=== PATIENT | female | born 1945 | race Caucasian/White ===

== ENCOUNTER 2017-07-22 13:54 | Inpatient (IN) | payer OTHER, BC ==
[~2017-07-22] VITALS: Ht 160 cm; Wt 62.1 kg
[2017-07-22] VITALS (27 sets, daily range): BP systolic 93–180; BP diastolic 34–76
--- NOTE | ~2017-07-22 | P ---
[facility] [place] [address] PROCEDURE REPORT Name: VENESSA CH Room #: 244-P ADM IN .R.#: [id number] Admission: 07/22/17 Attend Phys: Rm Kim MD Discharge: Date of : 47 Report #: [id number] THIS REPORT FOR: //name// CC: RM Draper DATE OF SERVICE: 07/23/2017 PROCEDURE PERFORMED: Upper endoscopy. HISTORY OF PRESENT ILLNESS: The patient is a 71-year-old female with a history of end-stage liver disease, end-stage renal disease, on hemodialysis, she was admitted with acute mental status change from her nursing facility and she was recently discharged from [facility]. On admission was noted to be severe anemic with a hemoglobin of 5.7. She has now received a total of 2 units and now in the [address] scan of her head showed no acute processes. The patient apparently has a history of chronic hepatitis C and cirrhosis, apparently is not a possible liver transplant candidate due to multiple comorbidities. On admission to the Emergency Room, she was noted to have some small amount of bright red blood in her mouth, there was no recent history of melanotic stools or bright red blood per rectum. Plan is for EGD. DESCRIPTION OF PROCEDURE: The risks and benefits of the procedure were explained to the patient's son, those risks including but not limited to bleeding, perforation, the risk of sedation. He understood these risks and gave informed consent. Sedation was given using propofol per anesthesia. The procedure was performed in the ICU, the patient is intubated at this time. Next, using a therapeutic Fujinon upper endoscope, the scope was placed in the patient's mouth and advanced under direct vision through the esophagus, stomach and into the second portion of the duodenum. The esophagus was normal throughout. The GE junction was normal. No evidence of esophageal varices. In the stomach, in the gastric fundus, there was some old blood, that was pooled in this area. Multiple washings and aspirations were performed not all of that could be removed, but no obvious gastric varices were noted. There was a mild diffuse gastritis. In the antrum, there was a small amount of bright red blood. Multiple washings and aspirations were performed, no active bleeding. No obvious ulcerations or erosions. Of note, the patient has platelet count 38,000, an elevated INR of 1.5 due to her liver disease. Her pylorus was normal and patent. Her duodenal bulb, first and second portion were normal. The scope was then withdrawn and the procedure terminated. The patient tolerated the procedure well. IMPRESSION: 1. Mild diffuse gastritis in the gastric body and antrum with small amount of bright red blood, nothing to cauterize. No ulcerations or erosions. She may [address] [address] PROCEDURE REPORT Name: VENESSA CH Room #: 244-P [facility] IN M.R.#: [id number] Admission: 07/22/17 Attend Phys: Rm Kim MD Discharge: Date of : 47 Report #: [id number] have bleeding secondary to low platelets and elevated INR as well as gastritis, would continue PPI therapy. We will discontinue octreotide at this time and continue to monitor hemoglobin closely. If she has continued drop in her hemoglobin, may need to consider colonoscopy or further evaluation. 2. Elevated ammonia level. She is currently undergoing lactulose enemas at this time. We will continue to monitor ammonia levels. Thank you for allowing me to participate in her care. <ELECTRONICALLY SIGNED> By: Shayne Duncan MD 07/24/17 1234 [id number] 0108 Shayne Duncan MD /nt
--- NOTE | ~2017-07-22 | HC ---
[facility] [place] [address] CONSULTATION Name: VENESSA CH Room #: 420-P [facility] IN M.R.#: [id number] Admission: 07/22/17 Attend Phys: Rm Kim MD Discharge: Date of : 47 Report #: [id number] THIS REPORT FOR: //name// CC: Rm Draper INFECTIOUS DISEASE CONSULTATION REASON FOR CONSULTATION: I was asked to evaluate concerning multisystem failure with underlying cirrhosis and hepatic encephalopathy with GI bleed, respiratory failure, end-stage renal disease. HISTORY OF PRESENT ILLNESS: Recently hospitalized at [facility] with hepatic encephalopathy. She has underlying hepatitis C and end-stage renal disease, undergoing hemodialysis via right upper extremity AV fistula. Following her discharge, she was at [facility] where she became more lethargic. Brought in through the Emergency Room with evidence of bleeding from her mouth. Hemoglobin 5 and encephalopathic. She does have a history of variceal bleeding. She has been placed on octreotide drip. Intubated and remains on the ventilator. She remains encephalopathic. She was treated with ceftriaxone. She has remained afebrile and hemodynamically stable off vasopressors. She has had black tarry stools. FiO2 is 30%. She has a right IJ catheter, which is oozing. She is now on hemodialysis. ALLERGIES: None known. MEDICATIONS: As noted on her MAR, now on ceftriaxone. PAST MEDICAL HISTORY: Very limited from the records noting hepatitis C with cirrhosis, varices, previous hepatic encephalopathy, end-stage renal disease. FAMILY HISTORY: Not available. SOCIAL HISTORY: Not available and awaiting records for further evaluation. REVIEW OF SYSTEMS: As noted above. PHYSICAL EXAMINATION: VITAL SIGNS: Afebrile, vital signs were stable with a pulse of 89, blood pressure 118/40, MAP of 63, FiO2 of 30%. HEENT: Pupils were reactive to light. She was otherwise unresponsiveness to painful stimulus. SKIN: Unremarkable, had some oozing from her mouth, orally intubated, right IJ catheter with some oozing. EXTREMITIES: Right upper extremity AV fistula functioning. LUNGS: Coarse bilaterally. HEART: Regular without murmur. [facility] [address] [place] [address] CONSULTATION Name: VENESSA CH Room #: 420-P [facility] IN M.R.#: [id number] Admission: 07/22/17 Attend Phys: Rm Kim MD Discharge: Date of : 47 Report #: [id number] ABDOMEN: Soft. She did have some edema to abdominal pannus. No masses appreciated. No hepatosplenomegaly. GENITOURINARY: Rectal tube in place with black stool, small eschar to the right heel. LABORATORY STUDIES: Sodium 129, potassium 4.7, bicarb at 20, creatinine 4.5. AST 67, bilirubin 2.2, alk phos 115, ALT 37, albumin at 2.1. Ammonia initially 224, now 161. Troponin negative. Alcohol negative. INR 1.5. Hemoglobin 7.5 up from 5.2 last evening. WBC 7.9; platelet count 38,000; differential unremarkable. MRSA screen pending. Urinalysis pending. ABG on 30% FiO2 showed a pO2 of 129, PCO2 of 29, pH 7.45. Blood cultures are pending. Chest x-ray: Cardiomegaly; vascular congestion with patchy bibasilar atelectasis; infiltrate, left greater than right. CT scan of the head, mild atrophy, minimal microvascular disease. IMPRESSION: A 71-year-old with multisystem failure with underlying cirrhosis of the liver due to hepatitis C and hepatic encephalopathy with gastrointestinal bleed, suspect variceal. Unclear if her hepatitis C has been treated. Has end-stage renal disease contributing here. Thrombocytopenia likely related to sequestration. RECOMMENDATION: We will continue with vancomycin and ceftriaxone. Can see bacteremia is related to variceal bleeding. We will treat empirically, pending culture results. Await GI evaluation for upper endoscopy. We will obtain records from [facility] to determine her treatment for hepatitis C and any other infection complication issues during that hospitalization. I do note a history of C. difficile colitis in the past. Does not appear to be active at this point in time, but it is difficult to tell with a GI bleed. We will obtain a stool for C. diff PCR, maintain isolation and follow. <ELECTRONICALLY SIGNED> By: George Guerrero MD 08/03/17 1119 1137 0034 George Guerrero MD /nt
--- NOTE | ~2017-07-22 | HC ---
[facility] [place] [address] CONSULTATION Name: VENESSA CH Room #: 244-P [facility] IN M.R.#: [id number] Admission: 07/22/17 Attend Phys: Rm Kim MD Discharge: Date of : 47 Report #: [id number] THIS REPORT FOR: //name// CC: Rm Draper DATE OF SERVICE: 07/22/2017 REASON FOR CONSULTATION: Ventilator management. IMPRESSION: 1. Acute respiratory failure secondary to mental status. 2. Hepatic encephalopathy. 3. End-stage renal disease. 4. Protein-calorie malnutrition. 5. Hyperglycemia. 6. Lactic acidosis. 7. Elevated ammonia. 8. Anemia, severe. PLAN: The patient has been intubated. We will monitor on this. We will monitor hemoglobin, being transfused. Renal to see for fluid status. Aerosol therapy. GI is to follow. The patient will be given lactulose per enema until EGD is able to be done because of possible varices. Protonix drip has been started. History is extremely limited. A 71-year-old female from ____ [place]. [facility] thought she was sleeping in and unable to awaken and transferred to [facility]. We are awaiting [facility] records. PAST MEDICAL HISTORY: Unobtainable at this time. PHYSICAL EXAMINATION: VITAL SIGNS: Temperature 97.1, pulse 84, respirations 12, BP 136/42, orally intubated. LUNGS: Clear anteriorly. HEART: Regular. ABDOMEN: Bowel sounds present, distended. EXTREMITIES: Showed discolored. ____ was used for intubation. LABORATORY DATA: Guaiac was positive per note. Alcohol less than 10. Sodium 130, BUN 61, creatinine 4.1, glucose 142. SGOT 67, total bilirubin 1.1, SGPT 38, albumin 2.2. CT head showed atrophy, minimal microvascular disease. Chest x-ray showed cardiomegaly. The pH 7.5, pCO2 33, pO2 110 on 2 liters. Ammonia [facility] [address] [place] [address] CONSULTATION Name: VENESSA CH Room #: 244-P ADM IN M.R.#: [id number] Admission: 07/22/17 Attend Phys: Rm Kim MD Discharge: Date of : 47 Report #: [id number] 224. White count 4.1, hemoglobin 5.7, platelets 64. The patient was also given a dose of ceftriaxone, question of subacute bacterial peritonitis. <ELECTRONICALLY SIGNED> By: Gregory Tucker MD 08/02/17 0004 1628 0106 Gregory Tucker MD /nt
--- NOTE | ~2017-07-22 | HC ---
[facility] [place] [address] CONSULTATION Name: VENESSA CH Room #: 420-P [facility] IN M.R.#: [id number] Admission: 07/22/17 Attend Phys: Rm Kim MD Discharge: Date of : 47 Report #: [id number] THIS REPORT FOR: //name// CC: Rm Draper DATE OF SERVICE: 08/08/2017 HISTORY OF PRESENT ILLNESS: The patient is a 71-year-old white female with end-stage liver disease secondary to hepatitis C, end-stage renal disease - on hemodialysis, multiple complications related to her end-stage liver disease including hepatic coma and history of TIPS, recent hospitalization at [facility]. She was noted to be anemic with GI bleed and EGD showing gastritis with friable mucosa. She has hepatic encephalopathy with elevated ammonia level and is needing Xifaxan as well as taking lactulose, issues with diarrhea/liquid stools with C. diff and lactulose, and GI bleed thought to be contributing. She also had an episode of acute respiratory failure, was intubated, subsequently extubated and is improved in that respect. PAST MEDICAL HISTORY: Hepatitis C with cirrhosis and varices, previous hepatic encephalopathy, and end-stage renal disease. MEDICATIONS: Please see the full MAR. ALLERGIES: No known drug allergies. FAMILY HISTORY: Noncontributory. SOCIAL HISTORY: Lives in [place], [facility], with a farm. Her son lives with her and works at farm. She utilized a walker premorbidly. She has had prior hospitalizations at skilled stays prior to the current hospitalization. REVIEW OF SYSTEMS: Did not offer any current complaints of chest pain or shortness of breath. She notes some abdominal pain. She complains with some of the diarrhea that she has had. She has some heel discomfort and has blisters of her heels with heel protectors. PHYSICAL EXAMINATION: GENERAL: A 71-year-old white female, sleepy, but will arouse. VITAL SIGNS: Her temperature is 98.8, pulse 81, respirations 19, and blood pressure 113/38. NEUROLOGIC: Appears appropriate. Facies are symmetric. Range of motion of both upper extremities ____ functional with strength grade 3+/5. DTRs are trace to 1. She does have obesity with pendulous abdomen. EXTREMITIES: Lower extremities, she has a couple of blistered areas, medial right heel and the heel is currently off-weighted and has heel protectors. Left [facility] [address] [place] [address] CONSULTATION Name: VENESSA CH Room #: 420-P [facility] IN ..#: [id number] Admission: 07/22/17 Attend Phys: Rm Kim MD Discharge: Date of : 47 Report #: [id number] heel is boggy laterally, again with off-weighting and heel protectors. There is no focal calf swelling. Strength is grade 3-3+/5. She has been mild to mod assist with basic bed mobility and attempt to sit to stand. Tolerance is limited. ASSESSMENT: A 71-year-old white female with the following problem list: 1. Hepatic encephalopathy. 2. End-stage liver disease secondary to hepatitis C. 3. Elevated ammonia needing Xifaxan as well as lactulose 4. Diarrhea/liquid stools. 5. Gastrointestinal bleed with gastritis/friable mucosa. 6. Not a candidate for liver transplant with other comorbidities. 7. End-stage renal disease, on hemodialysis. 8. Bilateral heel pressure ulcers with heel protectors in place. 9. Episode of acute respiratory failure, which has resolved. 10. Prior epidural abscess L3 through L5, status post laminectomy, complicated by wound dehiscence. 11. History of ascites, status post TIPS. 12. Esophageal varices. PLAN: Difficult situation as discussed with Dr. alberto. She is on Xifaxan to help with the encephalopathy, status post TIPS. I did not see that she would meet criteria for an acute [address] [place] [address] inpatient rehabilitation stay. Thank you for asking us to assist in this patient's care. By: 1107 0516 Ricci Dunn MD /AINSLEY
--- NOTE | ~2017-07-22 | EKG ---
[place] [address] [facility] [place] [place] [address] ELECTROCARDIOGRAM REPORT Name: VENESSA CH Room #: 244-P ADM IN M.R.#: [id number] Admission: 07/22/17 Attend Phys: Rm Kim MD Discharge: Date of : 47 Report #: [id number] THIS REPORT FOR: //name// [facility] ED Test Date: 2017-07-22 Test Time: 14:29:29 Pat Name: VENESSA CH Department: Room: 244 Gender: F Correctional Captain: [id number] : 1945 Requested By: Yulissa Lancaster Order Number: [id number] MD: Cj Rizo Measurements Intervals [place] Rate: 81 P: 18 OK: 135 QRS: -31 QRSD: 88 T: 42 QT: 418 QTc: 486 Interpretive Statements Sinus rhythm Left axis deviation Low voltage, precordial leads Borderline prolonged QT interval No previous ECG available for comparison Electronically Signed On 07-23-2017 7:56:38 CDT by Cj Rizo [email or web address] <ELECTRONICALLY SIGNED> By: Cj Rizo MD, [facility] 07/23/17 0756 142 Cj Rizo MD, [facility] /EPI
--- NOTE | ~2017-07-22 | HC ---
[facility] [address] [place] [address] CONSULTATION Name: VENESSA CH Room #: 244-P [facility] IN M.R.#: [id number] Admission: 07/22/17 Attend Phys: Rm Kim MD Discharge: Date of : 47 Report #: [id number] THIS REPORT FOR: //name// CC: Rm Draper REASON FOR CONSULTATION: End-stage renal disease. REASON FOR PRESENTATION: Altered mental status. HISTORY OF PRESENT ILLNESS: This is a very limited history and all of the details were obtained from the patient's charts as she currently is intubated. The patient was discharged from to [facility]. In the [place], the patient was found to have a change in the mental status and was transferred to [facility] for further evaluation and management. Reviewing the medical records, it does look like the patient has an end-stage renal disease, maintained on hemodialysis. She is known to have hep C with recent treatment for hepatic encephalopathy. She was found to have an elevated ammonia level with anemia, hyponatremia and I was consulted to manage her chronic kidney disease. She was intubated overnight. The details of the history as I have stated are not available. PAST MEDICAL HISTORY: Per records: 1. End-stage renal disease. 2. Hep C. 3. Encephalopathy. 4. AV graft. 5. C. diff. MEDICATIONS: Unknown, pending the patient's medical records. Currently, she is maintained on ceftriaxone, octreotide, pantoprazole. FAMILY HISTORY: Unknown given the patient's mental status. REVIEW OF SYSTEMS: Unobtainable given the patient's mental status. SOCIAL HISTORY: She resides at the [facility]. No other parts of the history available. PHYSICAL EXAMINATION: GENERAL: The patient is currently intubated. VITAL SIGNS: Blood pressure is 110/39. Pulse rate is 89. HEAD AND NECK: ET tube in place. She has a right IJ triple lumen catheter with oozing. CHEST: No crackles. CARDIOVASCULAR: No rub. ABDOMEN: Soft. In the mid abdomen and right around the umbilicus area, there [address] [address] CONSULTATION Name: VENESSA CH Room #: 244-P ADM IN M.R.#: [id number] Admission: 07/22/17 Attend Phys: Rm Kim MD Discharge: Date of : 47 Report #: [id number] is a firm subcutaneous area of unclear sources to me. LOWER EXTREMITIES: +1 edema. UPPER EXTREMITIES: +2 edema. LABORATORY VALUES: From today reviewed. Summary of the recent labs: Platelet is 38, hemoglobin is 7.5. Sodium 129, glucose 186. Bili 2.2. Ammonia 161. Imaging including her chest x-rays and head CT were reviewed. ASSESSMENT, IMPRESSION, PLAN: 1. End-stage renal disease. 2. Hepatic encephalopathy. 3. Acute blood loss anemia. 4. Thrombocytopenia. 5. End-stage liver disease. 6. Respiratory failure. 7. From the renal perspective, we will initiate dialysis and orders are written. 8. Septic workup. 9. Obtain medical records. 10. Ventilator support. 11. Antibiotics per Infectious Diseases. 12. Usual management of an end-stage liver disease. Given her blood parameters including her anemia, platelets, we will defer decisions regarding transfusion, fresh frozen plasma, etc., to the primary team. <ELECTRONICALLY SIGNED> By: Shaina Pelaez MD 07/24/17 2146 0723 06 Shaina Pelaez MD /nt
[2017-07-22 14:15] LABS: MCHC 34.6 g/dL (28.0-37.0); WBC 4.1 thou/uL (4.0-11.0)
[2017-07-22 14:17] LABS: MCH 32.9 pg (26.0-34.0); MCV 95.2 fL (80.0-100.0); RBC 1.73 mil/uL (4.20-5.00); RDW 20.2 % (10.5-14.5)
[2017-07-22 14:19] LABS: MANUAL DIFF YES
[2017-07-22 14:20] LABS: ANION GAP 9 mmol/L (7-16); BUN 61 mg/dL (7-18); CALCIUM 8.2 mg/dL (8.5-10.1); CHLORIDE 96 mmol/L (98-107); CO2 25 mmol/L (21-32); CREATININE 4.1 mg/dL (0.6-1.0); GLUCOSE 142 mg/dL (74-106); POTASSIUM 4.8 mmol/L (3.5-5.1); SODIUM 130 mmol/L (136-145)
[2017-07-22 14:21] LABS: HEMATOCRIT 16.5 % (37.0-47.0); HEMOGLOBIN 5.7 gm/dL (12.0-15.0)
[2017-07-22 14:28] LABS: ALBUMIN 2.2 g/dL (3.4-5.0); ALKALINE PHOSPHATASE 120 U/L (46-116); SGOT 67 U/L (15-37); SGPT 38 U/L (30-65); TOTAL BILIRUBIN 1.1 mg/dL (<0.1-1.0); TOTAL PROTEIN 5.6 g/dL (6.4-8.2); TROPONIN-I < 0.04 ng/mL (<0.04-0.07)
[2017-07-22 15:33] LABS: ABG COMMENT NO COMPLICATIONS.; ABG SAMPLE TYPE ARTERIAL; BE(vivo) 1.7 mmol/L (-2 to +3); LACTATE 2.15 mmol/L (0.5-2.0); O2(CT) 8.3 mL/dL (15.0-23.0); O2Hb 95.7 % (92.0-98.0); PCO2 32.7 mmHg (35.0-45.0); STICK SITE L.RADIAL; pH 7.501 (7.360-7.450); sO2 98.4 % (92.0-98.0)
[2017-07-22 16:21] LABS: ABSOLUTE NEUTROPHILS 3.6 thou/uL (1.4-8.2); ANISOCYTOSIS 1+; POLYCHROMASIA SLIGHT; TOTAL CELL COUNT 100
[2017-07-22 16:25] LABS: PLATELET COUNT 64 thou/uL (150-400)
[2017-07-22 16:30] LABS: HEMATOCRIT 18.2 % (37.0-47.0); HEMOGLOBIN 6.3 gm/dL (12.0-15.0)
[2017-07-22 17:01] LABS: APTT 32.1 Seconds (24.5-32.8); INR 1.4; PROTIME 14.4 Seconds (9.3-11.4)
[2017-07-22 17:18] LABS: ABG SAMPLE TYPE ARTERIAL; BE(vivo) 0.7 mmol/L (-2 to +3); LACTATE 2.29 mmol/L (0.5-2.0); O2(CT) 7.7 mL/dL (15.0-23.0); O2Hb 90.9 % (92.0-98.0); PCO2 38.6 mmHg (35.0-45.0); PO2 71.9 mmHg (80.0-100.0); sO2 94.9 % (92.0-98.0); tCO2 26.2 mmol/L (24.0-30.0)
[2017-07-22 17:22] LABS: ABG COMMENT CMV; STICK SITE L.BRACHIAL; TIDAL VOLUME 400 ml
[2017-07-22 22:04] LABS: HEMATOCRIT 14.9 % (37.0-47.0)
[2017-07-22 22:05] LABS: HEMOGLOBIN 5.2 gm/dL (12.0-15.0)
[2017-07-23] VITALS (74 sets, daily range): BP systolic 81–181; BP diastolic 31–84
[2017-07-23 05:15] LABS: ABG SAMPLE TYPE ARTERIAL; BE(vivo) -3.7 mmol/L (-2 to +3); HCO3 19.7 mmol/L (22.0-26.0); LACTATE 3.03 mmol/L (0.5-2.0); O2(CT) 11.4 mL/dL (15.0-23.0); O2Hb 96.8 % (92.0-98.0); PO2 129.1 mmHg (80.0-100.0); sO2 98.7 % (92.0-98.0); tCO2 20.6 mmol/L (24.0-30.0)
[2017-07-23 05:16] LABS: STICK SITE L.RADIAL
[2017-07-23 05:17] LABS: TIDAL VOLUME 400 ml
[2017-07-23 05:27] LABS: MCH 30.9 pg (26.0-34.0); RBC 2.42 mil/uL (4.20-5.00)
[2017-07-23 05:28] LABS: HEMATOCRIT 21.9 % (37.0-47.0); MCHC 34.1 g/dL (28.0-37.0); MCV 90.6 fL (80.0-100.0); RDW 21.2 % (10.5-14.5); WBC 7.9 thou/uL (4.0-11.0)
[2017-07-23 05:29] LABS: HEMOGLOBIN 7.5 gm/dL (12.0-15.0)
[2017-07-23 05:40] LABS: INR 1.5; PROTIME 15.4 Seconds (9.3-11.4)
[2017-07-23 05:41] LABS: ALBUMIN 2.1 g/dL (3.4-5.0); CREATININE 4.5 mg/dL (0.6-1.0); MAGNESIUM 2.3 mg/dL (1.8-2.4); POTASSIUM 4.7 mmol/L (3.5-5.1); TOTAL BILIRUBIN 2.2 mg/dL (<0.1-1.0); TOTAL PROTEIN 5.4 g/dL (6.4-8.2)
[2017-07-24] VITALS (22 sets, daily range): BP systolic 111–157; BP diastolic 32–51
[2017-07-24 05:25] LABS: ABG SAMPLE TYPE ARTERIAL; BE(vivo) -0.6 mmol/L (-2 to +3); HCO3 22.1 mmol/L (22.0-26.0); LACTATE 3.48 mmol/L (0.5-2.0); O2(CT) 11.2 mL/dL (15.0-23.0); O2Hb 95.6 % (92.0-98.0); PCO2 28.6 mmHg (35.0-45.0); PO2 90.6 mmHg (80.0-100.0); pH 7.506 (7.360-7.450); sO2 97.7 % (92.0-98.0)
[2017-07-24 05:26] LABS: STICK SITE L.RADIAL; TIDAL VOLUME 400 ml
[2017-07-24 07:05] LABS: HEMATOCRIT 21.6 % (37.0-47.0); HEMOGLOBIN 7.3 gm/dL (12.0-15.0); MCHC 33.9 g/dL (28.0-37.0); MCV 91.5 fL (80.0-100.0); RBC 2.36 mil/uL (4.20-5.00); RDW 22.8 % (10.5-14.5); WBC 15.9 thou/uL (4.0-11.0)
[2017-07-24 07:15] LABS: ALBUMIN 2.1 g/dL (3.4-5.0); CALCIUM 7.6 mg/dL (8.5-10.1); POTASSIUM 4.1 mmol/L (3.5-5.1); TOTAL BILIRUBIN 2.6 mg/dL (<0.1-1.0); TOTAL PROTEIN 5.4 g/dL (6.4-8.2)
[2017-07-24 07:16] LABS: CREATININE 3.1 mg/dL (0.6-1.0)
[2017-07-24 15:07] LABS: HEP B SURFACE Ab(ANTI-HBS Non Reactive (())
[2017-07-25] VITALS (75 sets, daily range): BP systolic 69–146; BP diastolic 29–67
[2017-07-25 06:12] LABS: WBC 9.2 thou/uL (4.0-11.0)
[2017-07-25 06:14] LABS: MCH 31.9 pg (26.0-34.0); MCHC 34.1 g/dL (28.0-37.0); MCV 93.5 fL (80.0-100.0); RBC 2.06 mil/uL (4.20-5.00); RDW 24.1 % (10.5-14.5)
[2017-07-25 06:19] LABS: CALCIUM 7.6 mg/dL (8.5-10.1); POTASSIUM 4.3 mmol/L (3.5-5.1)
[2017-07-25 06:22] LABS: CREATININE 4.2 mg/dL (0.6-1.0)
[2017-07-25 06:35] LABS: HEMATOCRIT 19.2 % (37.0-47.0); HEMOGLOBIN 6.6 gm/dL (12.0-15.0)
[2017-07-25 10:53] LABS: INR 1.6
[2017-07-25 10:58] LABS: ALBUMIN 2.4 g/dL (3.4-5.0); TOTAL BILIRUBIN 2.2 mg/dL (<0.1-1.0); TOTAL PROTEIN 6.3 g/dL (6.4-8.2)
[2017-07-26] VITALS (64 sets, daily range): BP systolic 100–139; BP diastolic 29–68
[2017-07-26 07:11] LABS: HEMOGLOBIN 7.7 gm/dL (12.0-15.0); WBC 6.3 thou/uL (4.0-11.0)
[2017-07-26 07:12] LABS: HEMATOCRIT 22.1 % (37.0-47.0); MCHC 34.8 g/dL (28.0-37.0); RBC 2.4 mil/uL (4.20-5.00); RDW 21.7 % (10.5-14.5)
[2017-07-26 07:23] LABS: INR 1.5; PROTIME 14.8 Seconds (9.3-11.4)
[2017-07-26 07:31] LABS: ALBUMIN 1.9 g/dL (3.4-5.0); CALCIUM 7.6 mg/dL (8.5-10.1); POTASSIUM 3.6 mmol/L (3.5-5.1); TOTAL BILIRUBIN 1.8 mg/dL (<0.1-1.0); TOTAL PROTEIN 5.1 g/dL (6.4-8.2)
[2017-07-26 07:32] LABS: CREATININE 2.8 mg/dL (0.6-1.0)
[2017-07-27] VITALS (42 sets, daily range): BP systolic 99–135; BP diastolic 31–50
[2017-07-27 05:23] LABS: WBC 7.1 thou/uL (4.0-11.0)
[2017-07-27 05:25] LABS: HEMATOCRIT 21.2 % (37.0-47.0); HEMOGLOBIN 7.3 gm/dL (12.0-15.0); MCH 32.4 pg (26.0-34.0); MCHC 34.7 g/dL (28.0-37.0); MCV 93.3 fL (80.0-100.0); RBC 2.27 mil/uL (4.20-5.00); RDW 21.2 % (10.5-14.5)
[2017-07-27 05:29] LABS: CALCIUM 7.5 mg/dL (8.5-10.1); POTASSIUM 3.6 mmol/L (3.5-5.1)
[2017-07-27 05:32] LABS: CREATININE 3.8 mg/dL (0.6-1.0)
[2017-07-27 05:35] LABS: INR 1.4
[2017-07-28] VITALS (71 sets, daily range): BP systolic 104–137; BP diastolic 25–94
[2017-07-28 05:26] LABS: HEMATOCRIT 21.4 % (37.0-47.0); MCV 94.7 fL (80.0-100.0); RBC 2.26 mil/uL (4.20-5.00); WBC 6.4 thou/uL (4.0-11.0)
[2017-07-28 05:27] LABS: HEMOGLOBIN 7.3 gm/dL (12.0-15.0); MCH 32.1 pg (26.0-34.0); MCHC 33.9 g/dL (28.0-37.0); RDW 22.2 % (10.5-14.5)
[2017-07-28 05:28] LABS: ABG SAMPLE TYPE ARTERIAL; BE(vivo) 2.5 mmol/L (-2 to +3); HCO3 28.4 mmol/L (22.0-26.0); LACTATE 1.64 mmol/L (0.5-2.0); O2(CT) 12.7 mL/dL (15.0-23.0); O2Hb 94.9 % (92.0-98.0); PCO2 51.1 mmHg (35.0-45.0); pH 7.363 (7.360-7.450); sO2 96.3 % (92.0-98.0)
[2017-07-28 05:29] LABS: STICK SITE L.BRACHIAL; TIDAL VOLUME 400 ml
[2017-07-28 05:41] LABS: CALCIUM 7.6 mg/dL (8.5-10.1); CREATININE 2.2 mg/dL (0.6-1.0)
[2017-07-28 05:43] LABS: POTASSIUM 2.9 mmol/L (3.5-5.1)
[2017-07-29] VITALS (34 sets, daily range): BP systolic 118–138; BP diastolic 26–43
[2017-07-29 05:12] LABS: ABG SAMPLE TYPE ARTERIAL; BE(vivo) 0.9 mmol/L (-2 to +3); HCO3 25.9 mmol/L (22.0-26.0); O2(CT) 10.6 mL/dL (15.0-23.0); PCO2 43.5 mmHg (35.0-45.0); STICK SITE L.BRACHIAL; TIDAL VOLUME 400 ml; pH 7.393 (7.360-7.450); sO2 98.4 % (92.0-98.0); tCO2 27.3 mmol/L (24.0-30.0)
[2017-07-29 06:35] LABS: RBC 2.06 mil/uL (4.20-5.00)
[2017-07-29 06:36] LABS: MCH 33.2 pg (26.0-34.0); MCHC 34.4 g/dL (28.0-37.0); MCV 96.4 fL (80.0-100.0); WBC 6.5 thou/uL (4.0-11.0)
[2017-07-29 06:41] LABS: HEMATOCRIT 19.8 % (37.0-47.0); HEMOGLOBIN 6.8 gm/dL (12.0-15.0)
[2017-07-29 06:46] LABS: ALBUMIN 1.7 g/dL (3.4-5.0); CALCIUM 7.8 mg/dL (8.5-10.1); POTASSIUM 3.2 mmol/L (3.5-5.1)
[2017-07-29 06:52] LABS: CREATININE 3.5 mg/dL (0.6-1.0)
[2017-07-29 09:44] LABS: ABG SAMPLE TYPE ARTERIAL; BE(vivo) 0.7 mmol/L (-2 to +3); HCO3 26.6 mmol/L (22.0-26.0); LACTATE 1.95 mmol/L (0.5-2.0); O2(CT) 10.1 mL/dL (15.0-23.0); O2Hb 96.1 % (92.0-98.0); PCO2 49.7 mmHg (35.0-45.0); PO2 113.7 mmHg (80.0-100.0); Pressure Support 5 cm H20; STICK SITE L.BRACHIAL; pH 7.346 (7.360-7.450); sO2 97.9 % (92.0-98.0); tCO2 28.1 mmol/L (24.0-30.0)
[2017-07-29 09:45] LABS: ABG COMMENT 1 HR CPAP TRIAL
[2017-07-30] VITALS (12 sets, daily range): BP systolic 102–135; BP diastolic 23–48
[2017-07-30 05:47] LABS: WBC 6.1 thou/uL (4.0-11.0)
[2017-07-30 05:48] LABS: HEMATOCRIT 22.3 % (37.0-47.0); HEMOGLOBIN 7.5 gm/dL (12.0-15.0); MCH 33.1 pg (26.0-34.0); MCHC 33.8 g/dL (28.0-37.0); MCV 97.8 fL (80.0-100.0); RBC 2.28 mil/uL (4.20-5.00); RDW 21.4 % (10.5-14.5)
[2017-07-30 06:07] LABS: ALBUMIN 1.7 g/dL (3.4-5.0); CREATININE 4.4 mg/dL (0.6-1.0); POTASSIUM 3.2 mmol/L (3.5-5.1); TOTAL PROTEIN 5.2 g/dL (6.4-8.2)
[2017-07-31] VITALS (43 sets, daily range): BP systolic 107–138; BP diastolic 26–46
[2017-07-31 04:37] LABS: HEMOGLOBIN 6.9 gm/dL (12.0-15.0); WBC 4.2 thou/uL (4.0-11.0)
[2017-07-31 04:39] LABS: HEMATOCRIT 20.3 % (37.0-47.0); MCV 96.9 fL (80.0-100.0); RBC 2.09 mil/uL (4.20-5.00); RDW 21.4 % (10.5-14.5)
[2017-07-31 04:44] LABS: CALCIUM 7.5 mg/dL (8.5-10.1); POTASSIUM 3.5 mmol/L (3.5-5.1)
[2017-07-31 04:48] LABS: CREATININE 2.5 mg/dL (0.6-1.0)
[2017-07-31 05:34] LABS: ABG SAMPLE TYPE ARTERIAL; BE(vivo) 3.5 mmol/L (-2 to +3); HCO3 28.9 mmol/L (22.0-26.0); LACTATE 1.59 mmol/L (0.5-2.0); O2(CT) 10.5 mL/dL (15.0-23.0); O2Hb 96.3 % (92.0-98.0); PCO2 48.7 mmHg (35.0-45.0); PO2 115.2 mmHg (80.0-100.0); pH 7.391 (7.360-7.450); sO2 98.1 % (92.0-98.0); tCO2 30.4 mmol/L (24.0-30.0)
[2017-07-31 12:33] LABS: ABG SAMPLE TYPE ARTERIAL; BE(vivo) 3.1 mmol/L (-2 to +3); HCO3 28.7 mmol/L (22.0-26.0); LACTATE 1.29 mmol/L (0.5-2.0); O2(CT) 12.3 mL/dL (15.0-23.0); O2Hb 96.7 % (92.0-98.0); PCO2 49.1 mmHg (35.0-45.0); PO2 119.7 mmHg (80.0-100.0); STICK SITE L.RADIAL; TIDAL VOLUME 728 ml; pH 7.384 (7.360-7.450); sO2 98.2 % (92.0-98.0); tCO2 30.2 mmol/L (24.0-30.0)
[2017-07-31 12:34] LABS: ABG COMMENT CPAP TRIAL; Pressure Support 8 cm H20
[2017-07-31 17:54] LABS: ABG SAMPLE TYPE ARTERIAL; BE(vivo) 4.6 mmol/L (-2 to +3); HCO3 30.6 mmol/L (22.0-26.0); LACTATE 1.17 mmol/L (0.5-2.0); O2Hb 93.4 % (92.0-98.0); PCO2 54.2 mmHg (35.0-45.0); PO2 76.5 mmHg (80.0-100.0); pH 7.369 (7.360-7.450); sO2 94.7 % (92.0-98.0); tCO2 32.2 mmol/L (24.0-30.0)
[2017-07-31 17:55] LABS: STICK SITE L.RADIAL
[2017-07-31 17:56] LABS: ABG COMMENT NO COMPLICATIONS
[2017-08-01] VITALS (46 sets, daily range): BP systolic 82–145; BP diastolic 32–82
[2017-08-01 04:58] LABS: ABG SAMPLE TYPE ARTERIAL; HCO3 29.2 mmol/L (22.0-26.0); LACTATE 1.27 mmol/L (0.5-2.0); O2(CT) 13.4 mL/dL (15.0-23.0); O2Hb 94.5 % (92.0-98.0); PCO2 52.9 mmHg (35.0-45.0); PO2 81.1 mmHg (80.0-100.0); sO2 95.4 % (92.0-98.0); tCO2 30.8 mmol/L (24.0-30.0)
[2017-08-01 04:59] LABS: STICK SITE L.RADIAL
[2017-08-01 05:00] LABS: Face Shield 35 %
[2017-08-01 10:29] LABS: HEMATOCRIT 18.9 % (37.0-47.0); HEMOGLOBIN 6.4 gm/dL (12.0-15.0)
[2017-08-02] VITALS (18 sets, daily range): BP systolic 69–141; BP diastolic 33–79
[2017-08-02 05:27] LABS: HEMATOCRIT 22.8 % (37.0-47.0); HEMOGLOBIN 7.9 gm/dL (12.0-15.0)
[2017-08-03 04:21] VITALS: BP 121/40
[2017-08-03 06:25] LABS: HEMATOCRIT 23.1 % (37.0-47.0); HEMOGLOBIN 8.2 gm/dL (12.0-15.0); MCH 34.1 pg (26.0-34.0); MCHC 35.2 g/dL (28.0-37.0); MCV 96.7 fL (80.0-100.0); RBC 2.39 mil/uL (4.20-5.00); RDW 22.3 % (10.5-14.5); WBC 9.3 thou/uL (4.0-11.0)
[2017-08-03 06:39] LABS: ALBUMIN 1.7 g/dL (3.4-5.0); CALCIUM 7.8 mg/dL (8.5-10.1); DIRECT BILIRUBIN 1.1 mg/dL (<0.1-0.3); POTASSIUM 3.5 mmol/L (3.5-5.1); TOTAL BILIRUBIN 2.1 mg/dL (<0.1-1.0); TOTAL PROTEIN 5.6 g/dL (6.4-8.2)
[2017-08-03 06:45] LABS: CREATININE 3.5 mg/dL (0.6-1.0)
[2017-08-03 07:50] VITALS: BP 123/56
[2017-08-03 17:09] VITALS: BP 120/41
[2017-08-03 19:33] VITALS: BP 106/36
[2017-08-04 03:03] VITALS: BP 106/30
[2017-08-04 04:03] LABS: INR 1.4; PROTIME 14.5 Seconds (9.3-11.4)
[2017-08-04 07:40] VITALS: BP 118/38
[2017-08-04 16:38] VITALS: BP 101/37
[2017-08-04 19:43] VITALS: BP 108/62
[2017-08-05 04:27] VITALS: BP 107/37
[2017-08-05 09:53] VITALS: BP 119/43
[2017-08-05 16:17] VITALS: BP 109/46
[2017-08-05 20:30] VITALS: BP 117/45
[2017-08-06 04:30] VITALS: BP 111/46
[2017-08-06 08:22] VITALS: BP 112/38
[2017-08-06 10:42] LABS: HEMATOCRIT 20.8 % (37.0-47.0); HEMOGLOBIN 7.1 gm/dL (12.0-15.0); MCH 33.8 pg (26.0-34.0); MCV 99.2 fL (80.0-100.0); RBC 2.09 mil/uL (4.20-5.00); RDW 23.6 % (10.5-14.5); WBC 8.1 thou/uL (4.0-11.0)
[2017-08-06 10:53] LABS: CALCIUM 7.7 mg/dL (8.5-10.1); CREATININE 4.7 mg/dL (0.6-1.0); POTASSIUM 3.2 mmol/L (3.5-5.1)
[2017-08-06 16:14] VITALS: BP 119/47
[2017-08-06 20:00] VITALS: BP 119/46
[2017-08-07 04:13] VITALS: BP 114/43
[2017-08-07 06:11] LABS: HEMOGLOBIN 6.6 gm/dL (12.0-15.0); MCH 34.3 pg (26.0-34.0); MCV 99.4 fL (80.0-100.0); RBC 1.92 mil/uL (4.20-5.00); WBC 5.4 thou/uL (4.0-11.0)
[2017-08-07 06:12] LABS: HEMATOCRIT 19.1 % (37.0-47.0); MCHC 34.6 g/dL (28.0-37.0); RDW 23.3 % (10.5-14.5)
[2017-08-07 06:17] LABS: CALCIUM 7.5 mg/dL (8.5-10.1); CREATININE 2.7 mg/dL (0.6-1.0); POTASSIUM 3.3 mmol/L (3.5-5.1)
[2017-08-07 08:11] VITALS: BP 105/44
[2017-08-07 16:20] VITALS: BP 109/47
[2017-08-07 16:31] VITALS: BP 103/46; BP 98/46
[2017-08-07 20:00] VITALS: BP 103/46
[2017-08-08 03:30] VITALS: BP 114/38
[2017-08-08 09:02] LABS: HEMATOCRIT 20.6 % (37.0-47.0); MCHC 34.2 g/dL (28.0-37.0); MCV 96.6 fL (80.0-100.0); RBC 2.13 mil/uL (4.20-5.00); RDW 23.9 % (10.5-14.5)
[2017-08-08 09:04] LABS: MANUAL DIFF YES
[2017-08-08 09:12] LABS: CALCIUM 7.5 mg/dL (8.5-10.1); POTASSIUM 3.4 mmol/L (3.5-5.1)
[2017-08-08 09:13] LABS: CREATININE 3.8 mg/dL (0.6-1.0)
[2017-08-08 09:38] LABS: ABSOLUTE NEUTROPHILS 3.1 thou/uL (1.4-8.2); ANISOCYTOSIS 2+; MICROCYTES 2+; PLATELET COUNT 51 thou/uL (150-400); PLATELET ESTIMATE DECREASED; POLYCHROMASIA SLIGHT; TOTAL CELL COUNT 100
[2017-08-08 09:43] VITALS: BP 113/38
[2017-08-08 11:02] LABS: ABSOLUTE RETIC COUNT 0.1363 10^6/uL; OBSERVED RETIC COUNT 6.34 % (0.6-2.6)
[2017-08-08 11:08] LABS: % SATURATION 46 % (20-39); IRON 59 ug/dL (50-170); TIBC 127 ug/dL (250-450); UIBC 68 ug/dL
[2017-08-08 12:09] LABS: FOLIC ACID 11.1 ng/mL (8.6-58.9)
[2017-08-08 15:50] VITALS: BP 106/48
[2017-08-08 20:00] VITALS: BP 124/49
[2017-08-09 04:13] VITALS: BP 124/38
[2017-08-09 05:38] LABS: HEMATOCRIT 20.1 % (37.0-47.0); MCH 33.6 pg (26.0-34.0); MCHC 34.9 g/dL (28.0-37.0); MCV 96.3 fL (80.0-100.0); RBC 2.09 mil/uL (4.20-5.00); RDW 23.6 % (10.5-14.5); WBC 3.3 thou/uL (4.0-11.0)
[2017-08-09 05:46] LABS: CALCIUM 7.4 mg/dL (8.5-10.1); POTASSIUM 3.4 mmol/L (3.5-5.1)
[2017-08-09 06:01] LABS: CREATININE 2.2 mg/dL (0.6-1.0)
[2017-08-09 07:21] VITALS: BP 131/47
[2017-08-09] MEDS ORDERED: XIFAXAN550 MG PO (16:32)
[2017-08-09] MEDS ORDERED: DUONEB 2.5-0.5 M3 ML INH (16:32)
[2017-08-09] MEDS ORDERED: LACTULOSE20 GM/30 M PO (16:32)
[2017-08-09] MEDS ORDERED: CARAFATE 1 GM TA1 G1 PO (16:33)
[2017-08-09] MEDS ORDERED: PROTONIX40 M1 PO (16:33)
== END 2017-08-09 19:05 | DRG 207 ==
LOC: ER 13:54 → ICU 15:36 → EROBS 15:36 → ICU 17:22 → 4E 08-02 18:54
PROVIDERS: Hospitalist; Internal Medicine; Internal Medicine Gastroenterology; Internal Medicine Nephrology; Internal Medicine Pulmonary Disease; Nurse Practitioner; Physician Assistant
PROC: 02H633Z Insertion of Infusion Device into Right Atrium, Percutaneous Approach (ICD-10-PCS; principal; 2017-07-22)
PROC: 30233L1 Transfusion of Nonautologous Fresh Plasma into Peripheral Vein, Percutaneous Approach (ICD-10-PCS; 2017-07-22)
PROC: 30233K1 Transfusion of Nonautologous Frozen Plasma into Peripheral Vein, Percutaneous Approach (ICD-10-PCS; 2017-07-22)
PROC: 30233N1 Transfusion of Nonautologous Red Blood Cells into Peripheral Vein, Percutaneous Approach (ICD-10-PCS; 2017-07-22)
PROC: 5A1955Z Respiratory Ventilation, Greater than 96 Consecutive Hours (ICD-10-PCS; 2017-07-22)
PROC: 0DJ08ZZ Inspection of Upper Intestinal Tract, Via Natural or Artificial Opening Endoscopic (ICD-10-PCS; 2017-07-23)
PROC: 5A1D60Z (ICD-10-PCS; 2017-07-23)
DX: J96.00 Acute respiratory failure, unspecified whether with hypoxia or hypercapnia (principal); N18.6 End stage renal disease; K72.01 Acute and subacute hepatic failure with coma; E43 Unspecified severe protein-calorie malnutrition; D62 Acute posthemorrhagic anemia; E87.1 Hypo-osmolality and hyponatremia; I85.00 Esophageal varices without bleeding; K92.2 Gastrointestinal hemorrhage, unspecified; R18.8 Other ascites; A04.7 Enterocolitis due to Clostridium difficile; J98.11 Atelectasis; Z68.24 Body mass index [BMI] 24.0-24.9, adult; R73.9 Hyperglycemia, unspecified; D69.6 Thrombocytopenia, unspecified; K74.60 Unspecified cirrhosis of liver; L89.629 Pressure ulcer of left heel, unspecified stage; L89.619 Pressure ulcer of right heel, unspecified stage; K29.70 Gastritis, unspecified, without bleeding; M54.10 Radiculopathy, site unspecified; E87.6 Hypokalemia; Z79.899 Other long term (current) drug therapy; Z99.2 Dependence on renal dialysis
CPT/HCPCS: 10078; 10783; 32100; 62110; 62900

== ENCOUNTER 2017-10-27 13:01 | Inpatient (IN) | payer OTHER, BC ==
[~2017-10-27] VITALS: Ht 152.4 cm; Wt 56.3 kg
--- NOTE | ~2017-10-27 | D ---
[facility] [place] [place] [address] DISCHARGE SUMMARY Name: VENESSA CH Room #: 356-P [facility] IN M.R.#: [id number] Admission: 10/27/17 Attend Phys: Ricci Harrington MD Discharge: Date of : 47 Report #: [id number] THIS REPORT FOR: //name// CC: Ricci Harrington FINAL DIAGNOSES: 1. Anemia of chronic disease. 2. End-stage liver disease. 3. Cirrhosis. 4. Chronic hepatitis C. 5. End-stage renal disease. 6. Multiple wounds. 7. Protein-calorie malnutrition. 8. Hepatic encephalopathy. 9. Senile debility. HOSPITAL COURSE: The patient is admitted for anemia. She received a total of 4 units of blood transfusion via hemodialysis. She had heme-positive stools, but no gross active bleeding. GI service assessed her, but no plans to scope at this time. She received supportive care during her stay through case management and myself. I spoke to and left messages with her son. Our recommendation here is palliative hospice care given her 2 end-stage organ disease and developing multiorgan failure. The patient has shown little interest in participating in rehabilitation or trying to get stronger. Appetite is very poor, nutrition remains poor. All supportive care was provided here. Ultimately, the plan will be to return to [facility]. She will continue hemodialysis as long as she can manage. If there is evidence of bleeding or anemia, we will reconsider transfusion as indicated. Overall, her prognosis is extremely poor and appears to have a terminal condition both with end-stage liver disease and ongoing hemodialysis. DISPOSITION: She is transferring back to [facility]. I will follow her stay there. She has a guarded prognosis. I signed her transfer orders and medications. <ELECTRONICALLY SIGNED> By: Ricci Harrington MD 11/01/17 1108 1041 1105 Ricci Harrington MD /nt
--- NOTE | ~2017-10-27 | HC ---
[facility] [place] [address] CONSULTATION Name: VENESSA CH Room #: 356-P ADM IN M.R.#: [id number] Admission: 10/27/17 Attend Phys: Ricci Harrington MD Discharge: Date of : 49 Report #: [id number] THIS REPORT FOR: //name// CC: Ricci Harrington DATE OF SERVICE: 10/28/2017 REASON FOR CONSULTATION: End-stage renal disease management. HISTORY OF PRESENT ILLNESS: This is a 72-year-old female who has been living at [facility]. She was transferred here to [facility] yesterday due to worsening anemia. Her hemoglobin is sitting at 5.4. The patient has had chronic anemia. She was in the hospital about 3 months ago and we were involved in her care at that time. She had some GI bleeding at that time, she required several transfusions. She has not yet been transfused at this point. Last admission, she ran many days with hemoglobins in the 6-7 range and was generally stable with that. The patient has end-stage renal disease and has been on hemodialysis for many years. Today, she is unable to tell me when she lasted her dialysis, but I am assuming based upon usual trends that she was dialyzed on 10/26/2017, which would be on a normal Sunday, Sunday, Sunday basis at [facility]. The patient really cannot give me any other details about her dialysis. She dialyzes using a right upper arm AV graft and that graft is functioning at this point. She does tend to have of some chronic edema. Again, she cannot tell me any other details about her dialysis. PAST MEDICAL HISTORY: End-stage renal disease, again on dialysis for some period of time. She also has end-stage liver disease, prior hepatitis C. She has had multiple GI bleeds as noted above. During her prior hospitalization, she had an EGD and somewhat surprisingly, she was not bleeding from varices. She also has had problems with some lower extremity wounds, but she cannot give me a meaningful history on that. MEDICATIONS: As listed from [facility] include vitamin C, Aranesp 10 mcg weekly, escitalopram 10 mg daily, iron 325 mg daily, Nephro-Max 1 daily, gabapentin 200 mg daily, Lantus and Humalog, DuoNeb inhaler, lactulose q.i.d., melatonin, miconazole, midodrine 5 mg daily, morphine, ondansetron, pantoprazole 40 mg b.i.d., rifaximin 550 mg b.i.d. and Carafate 1 g at bedtime. ALLERGIES: No known medical allergies. FAMILY HISTORY: Noncontributory. SOCIAL HISTORY: Over the past 3 months, the patient has been living at [facility]. She is a . [place], [place] [address] CONSULTATION Name: VENESSA CH Room #: 356-P [facility] IN M.R.#: [id number] Admission: 10/27/17 Attend Phys: Ricci Harrington MD Discharge: Date of : 49 Report #: [id number] [place]. REVIEW OF SYSTEMS: The patient cannot tell me much she is having quite a bit of pain, but it is diffuse. She is unaware of how much edema she has had recently. She is unaware of fevers, chills or sweats. She denies hematemesis or melena and I am uncertain how. PHYSICAL EXAMINATION: GENERAL: Chronically ill-appearing female. She is awake, does moan a little bit and give some one word answers, but really is not able to give me much else, other than that is reliable. Not doing much to help with the exam either. VITAL SIGNS: Blood pressure 135/43, heart rate 92, temperature 98.6, oxygen saturation 100%. HEENT: Shows pupils are equal and reactive. Sclerae nonicteric. Oral mucosa is moist. NECK: Veins are not distended. Neck is supple. CHEST: Shows shallow respirations bilaterally, a few central rhonchi. CARDIOVASCULAR: Heart has a regular rate and rhythm. ABDOMEN: Bowel sounds are present. She has mild diffuse tenderness. She has not had dramatic amounts of ascites. EXTREMITIES: Show 2+ bilateral lower extremity edema. Her legs are very tender. Both feet are wet and there is weeping through 1 bandage suggesting active drainage. She has a right upper arm AV graft in place for dialysis access, which has active flow. NEUROLOGIC: She is mostly obtunded. LABORATORY DATA: From yesterday, sodium 139, potassium 4.8, chloride 108, bicarbonate 30, BUN 13, creatinine 2.4, calcium 7.9. INR 1.4, hemoglobin 5.4, hematocrit 16.1, white count 9.3, platelets 92,000. ASSESSMENT: 1. End-stage renal disease. She will need dialysis tomorrow. She is rather volume overloaded. We will work on getting volume off as blood pressure allows. She does tend to be chronically hypotensive and is on midodrine and will continue that. 2. End-stage liver disease, chronically on treatment for elevated ammonia. 3. Anemia, severe and chronic. Does look like she has had that severe of a drop. Blood pressure is holding okay. At this point, we will repeat labs and see where she is running and determine if she needs transfusion. 4. Healed wounds. 5. Profound debility. PLAN: 1. Order is put in for dialysis tomorrow. 2. Recheck labs and see about further transfusion. 3. We will follow along this patient's care. [facility] [address] [place] [address] CONSULTATION Name: VENESSA CH Room #: 356-P ADM IN M.R.#: [id number] Admission: 10/27/17 Attend Phys: Ricci Harrington MD Discharge: Date of : 49 Report #: [id number] 4. Potential decisions concerning extensive care with her very poor overall condition. <ELECTRONICALLY SIGNED> By: Jere Paris MD 10/29/17 0810 1143 1725 Jere Paris MD /nt
--- NOTE | ~2017-10-27 | H ---
[facility] [place] [address] HISTORY AND PHYSICAL Name: VENESSA CH Room #: 356-P ADM IN M.R.#: [id number] Admission: 10/27/17 Attend Phys: Ricci Harrington MD Discharge: Date of : 49 Report #: [id number] THIS REPORT FOR: //name// CC: Ricci Harrington DATE OF SERVICE: 10/27/2017 HISTORY OF PRESENT ILLNESS: This is a 72-year-old female from [place] who is very anemic with hemoglobin of 5.2 with heme-positive stools and really background history of severe disease, weakness with end-stage liver disease and end-stage renal disease. Options are limited here. PAST MEDICAL HISTORY: Noteworthy for those findings plus history of hepatitis C, thought to be from a blood transfusion years ago. She has a history of diabetes, history of TIPS procedure wound. PAST SURGICAL HISTORY: She has had a hysterectomy, tonsillectomy, , lumpectomy, laminectomy. MEDICATIONS: List is well documented on the record. FAMILY HISTORY: Noncontributory. SOCIAL HISTORY: She lives at [place], but is very disabled. PHYSICAL EXAMINATION: GENERAL: Shows her lying in bed. She is awake. She is able to talk to me. She has no complaints, but obviously very weak in appearance. HEENT: Otherwise, negative. NECK: Supple, without thyromegaly or adenopathy. CHEST: Clear. CARDIOVASCULAR: Shows a regular rate and rhythm with a 1-2/6 systolic ejection murmur. ABDOMEN: Soft and nondistended. EXTREMITIES: Showed no significant edema. There was bruising. There was dressings on the heels and in the coccyx area. LABORATORY DATA: Show creatinine of 2.4. INR 1.4. White count 9.3, hemoglobin 5.4 with a platelet count 92,000. ASSESSMENT: This is a patient chronically ill with really near terminal findings of end-stage liver disease, end-stage renal disease with now wounds and GI bleeding. [facility] [address] [place] [address] HISTORY AND PHYSICAL Name: VENESSA CH Room #: 356-P [facility] IN ..#: [id number] Admission: 10/27/17 Attend Phys: Ricci Harrington MD Discharge: Date of : 49 Report #: [id number] PLAN: Transfusion, how much workup is needed is of question here and will need to get family involvement as to how this should progress. By: [id number] Brent Guerrero MD /[place]
--- NOTE | ~2017-10-27 | EKG ---
[place] [address] [facility] [place] [address] ELECTROCARDIOGRAM REPORT Name: VENESSA CH Room #: 170-6 ADM IN M.R.#: [id number] Admission: 10/27/17 Attend Phys: Ricci Harrington MD Discharge: Date of : 49 Report #: [id number] THIS REPORT FOR: //name// [facility] ED Test Date: 2017-10-27 Test Time: 13:27:47 Pat Name: VENESSA CH Department: Room: 170 Gender: F Banquet Attendant: Anca RODRIGUEZ : 1945 Requested By: Amber Kang Order Number: [id number] MD: Cj Rizo Measurements Intervals [place] Rate: 83 P: 45 MI: 153 QRS: -31 QRSD: 95 T: 19 QT: 417 QTc: 490 Interpretive Statements Sinus rhythm Left axis deviation Low voltage, precordial leads Borderline prolonged QT interval No tracings for comparison Electronically Signed On 10-27-2017 16:00:06 CH[employer]UTTER by Cj Rizo [email or web address] <ELECTRONICALLY SIGNED> By: Cj Rizo MD, [facility] 10/27/17 1600 1327 26 Cj Rizo MD, FACC /EPI
[~2017-10-27 13:01] MED LIST: CARAFATE 1 GM TA1 G1 PO; DUONEB 2.5-0.5 M3 ML INH; LACTULOSE20 GM/30 M PO; PROTONIX40 M1 PO; XIFAXAN550 MG PO
[2017-10-27 13:02] VITALS: BP 109/33
[2017-10-27] MEDS ORDERED: ARANESP10 MCG/0.4 (13:36)
[2017-10-27] MEDS ORDERED: HUMALOG100 UNIT/1 SUBQ (13:38)
[2017-10-27] MEDS ORDERED: GLUCO BURST37.5 GM PO (13:38)
[2017-10-27] MEDS ORDERED: NORCO 10-325 T1 EACH PO (13:39)
[2017-10-27] MEDS ORDERED: IRON325 PO (13:39)
[2017-10-27] MEDS ORDERED: LEXAPRO 10 MG T10 M2 PO (13:41)
[2017-10-27] MEDS ORDERED: LANTUS100 UNIT/M SUBQ (13:41)
[2017-10-27] MEDS ORDERED: MICONAZOLE5 GM TOP (13:42)
[2017-10-27] MEDS ORDERED: MIDODRINE HCL 55 M1 PO (13:42)
[2017-10-27] MEDS ORDERED: RENAL-VITE TAB0.8 MG PO (13:43)
[2017-10-27] MEDS ORDERED: TRIAMCINOLONE A80 G2 TOP (13:43)
[2017-10-27] MEDS ORDERED: ONDANSETRON HCL4 M2 PO (13:44)
[2017-10-27] MEDS ORDERED: VITAMINC500 PO (13:44)
[2017-10-27] MEDS ORDERED: GABAPENTIN 100100 MG PO (13:45)
[2017-10-27] MEDS ORDERED: LIDOCAINE1 EACH TRANSDERM (13:47)
[2017-10-27] MEDS ORDERED: MS CONTIN15 MG PO (13:48)
[2017-10-27] MEDS ORDERED: MELATONIN3 MG PO (13:48)
[2017-10-27 14:00] LABS: MCHC 33.8 g/dL (28.0-37.0); RBC 1.56 mil/uL (4.20-5.00)
[2017-10-27 14:01] LABS: CALCIUM 7.9 mg/dL (8.5-10.1); CREATININE 2.4 mg/dL (0.6-1.0)
[2017-10-27 14:02] LABS: MCH 34.9 pg (26.0-34.0); MCV 103.2 fL (80.0-100.0); POTASSIUM 4.8 mmol/L (3.5-5.1); RDW 20.3 % (10.5-14.5); WBC 9.3 thou/uL (4.0-11.0)
[2017-10-27 14:03] LABS: MANUAL DIFF YES
[2017-10-27 14:08] LABS: HEMATOCRIT 16.1 % (37.0-47.0); HEMOGLOBIN 5.4 gm/dL (12.0-15.0); PLATELET COUNT 92 thou/uL (150-400)
[2017-10-27 14:27] LABS: ABSOLUTE NEUTROPHILS 7.9 thou/uL (1.4-8.2); ANISOCYTOSIS 1+; MACROCYTES 1+; TOTAL CELL COUNT 100
[2017-10-27 14:38] LABS: INR 1.4; PROTIME 14.1 Seconds (9.3-11.4)
[2017-10-27 17:28] VITALS: BP 110/31
[2017-10-27 18:50] VITALS: BP 102/53
[2017-10-27 18:59] VITALS: BP 102/53
[2017-10-27 23:00] VITALS: BP 106/46; BP 114/87
[2017-10-28 00:05] VITALS: BP 114/87
[2017-10-28 02:35] VITALS: BP 101/63; BP 114/87; BP 148/46
[2017-10-28 08:00] VITALS: BP 135/43
[2017-10-28 12:00] VITALS: BP 121/41
[2017-10-28 16:00] VITALS: BP 114/31
[2017-10-28 20:00] VITALS: BP 120/41
[2017-10-29 04:00] VITALS: BP 112/40
[2017-10-29 05:57] LABS: HEMATOCRIT 21.6 % (37.0-47.0)
[2017-10-29 06:03] LABS: HEMOGLOBIN 7.4 gm/dL (12.0-15.0)
[2017-10-29 06:05] LABS: ALBUMIN 1.2 g/dL (3.4-5.0); CALCIUM 7.5 mg/dL (8.5-10.1); PHOSPHORUS 3.3 mg/dL (2.5-4.9); POTASSIUM 4.9 mmol/L (3.5-5.1)
[2017-10-29 06:06] LABS: CREATININE 3.9 mg/dL (0.6-1.0)
[2017-10-29 12:30] VITALS: BP 105/56
[2017-10-29 16:51] VITALS: BP 92/22
[2017-10-29 19:17] VITALS: BP 133/50
[2017-10-30 03:18] VITALS: BP 108/62
[2017-10-30 07:02] LABS: HEMATOCRIT 18.9 % (37.0-47.0); HEMOGLOBIN 6.4 gm/dL (12.0-15.0)
[2017-10-30 07:56] VITALS: BP 121/39
[2017-10-30 10:34] LABS: ALBUMIN 1.2 g/dL (3.4-5.0); DIRECT BILIRUBIN 0.9 mg/dL (<0.1-0.3); TOTAL BILIRUBIN 1.6 mg/dL (<0.1-1.0)
[2017-10-30 11:45] VITALS: BP 112/42
[2017-10-30 16:00] VITALS: BP 107/36
[2017-10-30 20:15] VITALS: BP 119/49
[2017-10-31 05:10] VITALS: BP 114/40
[2017-10-31 07:42] VITALS: BP 131/37
[2017-10-31 16:16] VITALS: BP 139/52
[2017-10-31 19:15] VITALS: BP 131/45
[2017-11-01 04:05] VITALS: BP 125/33
[2017-11-01 05:54] LABS: INR 1.5
[2017-11-01 05:56] LABS: ALBUMIN 1.2 g/dL (3.4-5.0); CALCIUM 7.2 mg/dL (8.5-10.1); POTASSIUM 4.1 mmol/L (3.5-5.1); TOTAL BILIRUBIN 3.6 mg/dL (<0.1-1.0); TOTAL PROTEIN 5.2 g/dL (6.4-8.2)
[2017-11-01 05:57] LABS: CREATININE 2.3 mg/dL (0.6-1.0)
[2017-11-01 07:02] LABS: HEMATOCRIT 25.9 % (37.0-47.0); MCH 32.6 pg (26.0-34.0); MCHC 34.5 g/dL (28.0-37.0); MCV 94.3 fL (80.0-100.0); RBC 2.75 mil/uL (4.20-5.00); RDW 20.5 % (10.5-14.5); WBC 11.2 thou/uL (4.0-11.0)
[2017-11-01 07:03] LABS: HEMOGLOBIN 8.9 gm/dL (12.0-15.0)
[2017-11-01 07:25] VITALS: BP 116/37
[2017-11-01 07:31] VITALS: BP 95/63
[2017-11-01] MEDS ORDERED: HYDROCODON-ACE1 EAC7 PO (10:31)
[2017-11-01] MEDS ORDERED: CARAFATE 1 GM TA1 G1 PO (10:34)
[2017-11-01 18:01] VITALS: BP 118/47
[2017-11-01 20:00] VITALS: BP 115/47
[2017-11-02 04:00] VITALS: BP 129/46
[2017-11-02 08:00] VITALS: BP 136/44
== END 2017-11-02 09:56 | DRG 377 ==
LOC: ER 13:01 → 3W 15:20 → EROBS 15:20 → 3W 17:23
PROVIDERS: Internal Medicine; Internal Medicine Gastroenterology; Internal Medicine Geriatric Medicine; Internal Medicine Nephrology; Nurse Practitioner; Nurse Practitioner Family
PROC: 05HM33Z Insertion of Infusion Device into Right Internal Jugular Vein, Percutaneous Approach (ICD-10-PCS; principal; 2017-10-27)
PROC: 30233N1 Transfusion of Nonautologous Red Blood Cells into Peripheral Vein, Percutaneous Approach (ICD-10-PCS; 2017-10-27)
PROC: 5A1D70Z Performance of Urinary Filtration, Intermittent, Less than 6 Hours Per Day (ICD-10-PCS; 2017-10-28)
PROC: 5A1D70Z Performance of Urinary Filtration, Intermittent, Less than 6 Hours Per Day (ICD-10-PCS; 2017-10-30)
PROC: 5A1D70Z Performance of Urinary Filtration, Intermittent, Less than 6 Hours Per Day (ICD-10-PCS; 2017-11-01)
DX: K92.2 Gastrointestinal hemorrhage, unspecified (principal); N18.6 End stage renal disease; E43 Unspecified severe protein-calorie malnutrition; R18.8 Other ascites; I12.0 Hypertensive chronic kidney disease with stage 5 chronic kidney disease or end stage renal disease; E11.9 Type 2 diabetes mellitus without complications; K74.60 Unspecified cirrhosis of liver; B18.2 Chronic viral hepatitis C; D63.8 Anemia in other chronic diseases classified elsewhere; K72.90 Hepatic failure, unspecified without coma; K21.9 Gastro-esophageal reflux disease without esophagitis; Z85.3 Personal history of malignant neoplasm of breast; Z86.010 Personal history of colon polyps; Z90.710 Acquired absence of both cervix and uterus; Z92.21 Personal history of antineoplastic chemotherapy; Z68.24 Body mass index [BMI] 24.0-24.9, adult; Z79.899 Other long term (current) drug therapy
CPT/HCPCS: 10779; 32100